=== PATIENT | male | born 1995 | race Caucasian/White ===

== ENCOUNTER 2016-05-23 15:27 | Emergency (ER) | payer OTHER ==
[~2016-05-23] VITALS: Ht 175.3 cm; Wt 69.6 kg
[~2016-05-23 15:27] MED LIST: HYOS0.128 SL
[2016-05-23 15:37] VITALS: BP 123/72
[2016-05-23] MEDS ORDERED: AZITHROMYCIN 500 MG TABLET PO ONE (16:30)
[2016-05-23] MEDS ORDERED: CEFTRIAXONE 250 MG IM ONE (16:30)
[2016-05-23] MEDS ORDERED: AZITHROMYCIN 250 MG TABLET ONE (16:44)
[2016-05-23] MEDS ORDERED: CEFTRIAXONE 250 MG ONE (16:44)
[2016-05-23] MEDS ORDERED: LIDOCAINE 1%, 20ML ONE (16:45)
== END 2016-05-23 17:01 | disposition home or self-care (01) ==
LOC: ED 16:45
DX: S40.012A Contusion of left shoulder, initial encounter (principal); S70.02XA Contusion of left hip, initial encounter; F12.10 Cannabis abuse, uncomplicated; W17.89XA Other fall from one level to another, initial encounter; Y93.89 Activity, other specified; Y92.89 Other specified places as the place of occurrence of the external cause; Y99.8 Other external cause status
CPT/HCPCS: 73030; 73502; 87491; 87591; 96372; 99285; J0696

== ENCOUNTER 2016-08-29 11:32 | Emergency (ER) | payer OTHER ==
[~2016-08-29] VITALS: Ht 175.3 cm; Wt 70.1 kg
[2016-08-29] MEDS ORDERED: IBUPROFEN 200 MG TABLET PO ONE (12:00)
[2016-08-29] MEDS ORDERED: IBUPROFEN 200 MG TABLET ONE (12:05)
[2016-08-29 14:20] VITALS: BP 119/79
== END 2016-08-29 14:22 | disposition home or self-care (01) ==
LOC: ED 14:10
DX: S82.444A Nondisplaced spiral fracture of shaft of right fibula, initial encounter for closed fracture (principal); V00.131A Fall from skateboard, initial encounter; Y93.89 Activity, other specified; Y92.89 Other specified places as the place of occurrence of the external cause; Y99.8 Other external cause status
CPT/HCPCS: 29515; 99284

== ENCOUNTER 2016-10-26 15:44 | Emergency (ER) | payer OTHER ==
[~2016-10-26] VITALS: Ht 177.8 cm; Wt 70.0 kg
[~2016-10-26 15:44] MED LIST changes: -HYOS0.128 SL; +HYOS0.1281 SL
[2016-10-26 15:45] VITALS: BP 113/71
== END 2016-10-26 17:03 | disposition home or self-care (01) ==
LOC: ED 16:57
DX: S62.326A Displaced fracture of shaft of fifth metacarpal bone, right hand, initial encounter for closed fracture (principal); X58.XXXA Exposure to other specified factors, initial encounter; Y93.89 Activity, other specified; Y92.89 Other specified places as the place of occurrence of the external cause; Y99.8 Other external cause status
CPT/HCPCS: 29125; 99284

== ENCOUNTER 2017-02-21 15:14 | Observation (INO) | payer OTHER ==
[~2017-02-21] VITALS: Ht 170.2 cm; Wt 69.0 kg
[2017-02-21] MEDS ORDERED: CHARCOAL/SORBITOL 50 GM/240 ML PO ONE (15:30)
[2017-02-21] MEDS ORDERED: NALOXONE 0.4 MG/ML, 1ML IVPush PRN (15:30)
[2017-02-21 16:07] LABS: BASOPHILS # (AUTO) 0.04 x10^3/uL (0-0.1); BASOPHILS % (AUTO) 0 % (0-1); EOSINOPHILS # (AUTO) 0.05 x10^3/uL (0-0.4); EOSINOPHILS % (AUTO) 1 % (1-7); LYMPHOCYTES # (AUTO) 2.07 x10^3/uL (1-3.4); LYMPHOCYTES % (AUTO) 22 % (22-44); MD NO; MEAN CORPUSCULAR HEMOGLOBIN 30.5 pg (27.5-34.5); MEAN CORPUSCULAR HGB CONC 33.6 g/dL (33.2-36.2); MEAN CORPUSCULAR VOLUME 90.8 fL (81-97); MEAN PLATELET VOLUME 7.6 fL (7.4-10.4); MONOCYTES # (AUTO) 0.35 x10^3/uL (0.2-0.8); MONOCYTES % (AUTO) 4 % (2-9); NEUTROPHILS # (AUTO) 7.02 x10^3/uL (1.8-6.8); NEUTROPHILS % (AUTO) 74 % (42-75); PLATELET COUNT 271 x10^3/uL (130-400); RED BLOOD COUNT 4.63 x10^6/uL (4.38-5.82); RED CELL DISTRIBUTION WIDTH 12.9 % (9.4-14.8)
[2017-02-21 16:15] LABS: ACETAMINOPHEN 13 mcg/mL (10-30); ANION GAP 9 mmol/L (5-15); CALCIUM 7.9 mg/dL (8.5-10.1); CHLORIDE 108 mmol/L (98-107); CREATININE 0.63 mg/dL (0.7-1.3)
[2017-02-21 16:16] LABS: SALICYLATE LEVEL < 1.7 mg/dL (2.8-20.0)
[2017-02-21] MEDS ORDERED: HALOPERIDOL 5 MG/ML IM PRN (18:30)
[2017-02-21 19:46] LABS: AMPHETAMINE SCREEN, URINE Negative (Negative); BARBITURATE SCREEN, URINE Negative (Negative); BENZODIAZEPINE SCREEN, URINE Negative (Negative); CANNABINOID SCREEN, URINE Positive (Negative); COCAINE SCREEN, URINE Negative (Negative); METHADONE SCREEN, URINE Negative (Negative); OPIATE SCREEN, URINE Positive (Negative)
[2017-02-21] MEDS ORDERED: DIPHENHYDRAMINE 50 MG/ML, 1ML ONE (20:18)
[2017-02-21] MEDS ORDERED: LORazepam 2 MG/ML, 1ML ONE (20:19)
[2017-02-21] MEDS ORDERED: ONDANSETRON 2MG/ML, 2ML ONE (20:19)
[2017-02-21] MEDS ORDERED: LORazepam 2 MG/ML, 1ML IVPush ONE (20:30)
[2017-02-21] MEDS ORDERED: DIPHENHYDRAMINE 50 MG/ML, 1ML IVPush ONE (20:30)
[2017-02-21] MEDS ORDERED: LORazepam 1MG TABLET PO PRN (22:00)
[2017-02-21] MEDS ORDERED: HALOPERIDOL 5 MG TABLET PO PRN (22:00)
[2017-02-21] MEDS ORDERED: DIPHENHYDRAMINE 50 MG CAPSULE PO PRN (22:00)
[2017-02-21 23:19] LABS: ALANINE AMINOTRANSFERASE 18 U/L (12-78); ALBUMIN 3.8 g/dL (3.4-5.0)
[2017-02-21 23:21] LABS: ALKALINE PHOSPHATASE 58 U/L (45-117); BILIRUBIN,TOTAL 0.3 mg/dL (0.2-1.0); TOTAL PROTEIN 7.5 g/dL (6.4-8.2)
[2017-02-21 23:22] LABS: ACETAMINOPHEN < 2 mcg/mL (10-30); BILIRUBIN, DIRECT < 0.1 mg/dL (0.1-0.2); BILIRUBIN,INDIRECT 0.2 mg/dL (0.0-2.0)
[2017-02-22] MEDS ORDERED: POTASSIUM CHLORIDE 20 MEQ TAB.ER.PRT PO ONE (17:00)
[2017-02-22] MEDS ORDERED: POTASSIUM CHLORIDE 20 MEQ TAB.ER.PRT ONE (20:35)
[2017-02-23 05:42] LABS: ANION GAP 6 mmol/L (5-15); CALCIUM 9.2 mg/dL (8.5-10.1); CHLORIDE 107 mmol/L (98-107)
[2017-02-23 05:44] LABS: CREATININE 0.59 mg/dL (0.7-1.3)
[2017-02-23 14:59] VITALS: BP 147/88
[2017-02-23 19:31] VITALS: BP 122/77
== END 2017-02-23 19:44 ==
LOC: ED 18:33 → EDIP 21:42 → INTOOBSV 21:42 → 2N 02-23 14:56
PROVIDERS: ADMIT Surgery; ATTEND Surgery
DX: T51.92XA Toxic effect of unspecified alcohol, intentional self-harm, initial encounter (principal); T50.902A Poisoning by unspecified drugs, medicaments and biological substances, intentional self-harm, initial encounter; F11.10 Opioid abuse, uncomplicated; F12.20 Cannabis dependence, uncomplicated; E87.6 Hypokalemia; Z91.5 Personal history of self-harm; Y90.8 Blood alcohol level of 240 mg/100 ml or more
CPT/HCPCS: 36415; 71045; 80048; 80076; 80307; 80329; 82040; 85025; 93005; 99285; G0378; G0479; G0480